=== PATIENT | male | born 1990 | race Caucasian/White ===

== ENCOUNTER 2017-03-18 14:32 | Emergency (ER) | payer OTHER ==
[~2017-03-18] VITALS: Ht 190.5 cm; Wt 112.5 kg
[2017-03-18 14:33] VITALS: BP 141/82
== END 2017-03-18 16:46 | disposition home or self-care (01) ==
LOC: M ED 16:41
DX: S61.211A Laceration without foreign body of left index finger without damage to nail, initial encounter (principal); W26.0XXA Contact with knife, initial encounter; Y92.019 Unspecified place in single-family (private) house as the place of occurrence of the external cause; Y93.89 Activity, other specified; Y99.8 Other external cause status; Z88.1 Allergy status to other antibiotic agents; Z91.018 Allergy to other foods

== ENCOUNTER → 2017-03-29 | Outpatient (CLI) | payer OTHER ==
[~2017-03-29] MED LIST: CONRAY-43 43% 50ML VIAL (Q9960) As Ordered ONE
--- NOTE | 2017-03-29 10:43 | REP ---
MR ARTHROGRAM RIGHT SHOULDER: TECHNIQUE: Axial T2 fat sat, coronal oblique T1, T2 fat sat, post arthrogram axial T1 fat sat, proton density, coronal oblique T1 fat sat, T2 sat, sagittal oblique T2 fat sat, ABER T1 fat sat. There are mild hypertrophic degenerative changes of the acromioclavicular joint. Acromion is curved in shape. There is mild increased signal on T2-weighted images which is ill-defined in the supraspinatus tendon compatible with tendinopathy/tendinitis. I do not see a focal rotator cuff tendon tear. Deltoid muscle demonstrates no abnormal signal. Biceps tendon is within the bicipital groove with no tenosynovitis. There is no Hill-Sachs deformity. Biceps labral complex is intact. I do not see evidence of a labral tear. Bone marrow signal is homogeneous and unremarkable with no bone marrow edema or occult fracture. No joint effusion is seen. There is no paralabral cyst. 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 Mild supraspinatus tendinopathy/tendinitis. No rotator cuff tear or labral tear. Signed by Dequan Fuchs MD 03/29/2017 04:20 P
--- NOTE | 2017-03-29 18:05 | REP ---
RIGHT SHOULDER ARTHROGRAM: The procedure was performed under the direct supervision of Dr. Fuchs. The benefits and risks including but not limited to pain, infection, bleeding, and anaphylaxis were explained to the patient and informed consent was obtained. The right glenohumeral joint space was localized using fluoroscopic guidance. The skin was prepped and draped in a sterile fashion. 1% Lidocaine was used a local anesthetic. Using fluoroscopic guidance a 22-gauge spinal needle was inserted and then advanced into the joint. 0.5 mL of Conray-43 was injected to verify placement. 11 mL of a solution containing 20 mL of sterile saline and 0.15 mL of ProHance was injected. The needle was removed and the patient was taken to MRI for postprocedural imaging. The patient tolerated the procedure well and there were no immediate complications. Reviewed by GUILLE Granados 03/30/2017 04:58 PEdited and Signed by Dequan Fuchs MD 03/30/2017 07:53 P
== END ==
LOC: M RADPRO 07:05 → EDUNIT# 07:30
PROVIDERS: ATTEND Physician Assistant
DX: M65.811 Other synovitis and tenosynovitis, right shoulder (principal); M19.011 Primary osteoarthritis, right shoulder; Z88.1 Allergy status to other antibiotic agents; Z91.018 Allergy to other foods
CPT/HCPCS: 23350; 73223; 77002; A9576; Q9960